=== PATIENT | female | born 1975 | race American Indian/Alaskan Native ===

== ENCOUNTER 2017-05-05 14:05 | Emergency (ER) | payer SELFPAY ==
[2017-05-05 14:54] LABS: Basophils % (Auto) 0.7 % (0.0-1.8); Eosinophils % (Auto) 2.9 % (0.0-4.3); Mean Corpuscular HGB Conc 29 % (30-34); Platelet Count 383 K/mm3 (140-440); Red Blood Count 4.88 M/mm3 (3.65-5.03); Red Cell Distribution Width 19.7 % (13.2-15.2); White Blood Count 8.6 K/mm3 (4.5-11.0)
[2017-05-05 14:58] LABS: Hematocrit 27.7 % (30.3-42.9); Mean Corpuscular Hemoglobin 16 pg (28-32); Mean Corpuscular Volume 57 fl (79-97)
[2017-05-05 15:05] LABS: Alanine Aminotransferase 12 units/L (7-56); Albumin 3.8 g/dL (3.9-5); Albumin/Globulin Ratio 1.1 %; Blood Urea Nitrogen 8 mg/dL (7-17); Calcium 8.7 mg/dL (8.4-10.2); Carbon Dioxide 23 mmol/L (22-30); Glucose 87 mg/dL (65-100); Total Protein 7.3 g/dL (6.3-8.2)
[2017-05-05 15:06] LABS: Alkaline Phosphatase 89 units/L (35-129); Anion Gap 18 mmol/L; Chloride 104.1 mmol/L (98-107); Lipase 31 units/L (13-60); Potassium 4.6 mmol/L (3.6-5.0); Sodium 140 mmol/L (137-145)
[2017-05-05 15:58] LABS: Bilirubin,Urine NEG (Negative); Blood,Urine NEG (Negative); Ketones,Urine NEG (Negative); Leukocyte Esterase,Urine MOD (Negative); Mucus,Urine FEW /HPF; Nitrite,Urine NEG (Negative); Urobilinogen,Urine < 2.0 mg/dL (<2.0)
--- NOTE | 2017-05-05 21:26 | Emergency Department Report ---
HPI - General Chief Complaint: Abdominal Pain Time Seen by Provider: 05/05/17 21:15 - HPI HPI: Room 8 The patient is a 41-year-old female presenting with a chief complaint of abdominal pain. The patient states that yesterday she has had intermittent "gnawing" pain in her right lower quadrant. Patient denies nausea vomiting or diarrhea. Patient denies dysuria hematuria or vaginal discharge. Patient denies fever or anorexia. The patient states her last Rm cycle came approximately 2 weeks late. The patient currently gives her pain a score of 8/ 10 Location: Lower quadrant Duration: Intermittent Since yesterday Quality: "Gnawing" Severity: 8/10 Modifying factors: [see above] Context: [see above] Mode of transportation: The patient drove herself to the emergency department and there are no other drivers present ED Past Medical Hx - Past Medical History Previous Medical History?: No - Surgical History Past Surgical History?: No Additional Surgical History: IUD - Family History Family history: no significant - Social History Smoking Status: Former Smoker (none 2 years) Substance Use Type: Alcohol (occasional) - Medications Home Medications: Home Medications Medication Instructions Recorded Confirmed Last Taken Type HYDROcodone/APAP 5-325 [[place] 1 - 2 each PO Q6HR PRN #14 tablet 05/05/17 Unknown Rx 5/325] Sulfamethoxazole/Trimethoprim 1 each PO BID #20 tablet 05/05/17 Unknown Rx [Bactrim DS TAB] ED Review of Systems ROS: Stated complaint: RT LOWER SIDE PAIN Other details as noted in HPI Comment: All other systems reviewed and negative Constitutional: denies: chills, fever Eyes: denies: eye pain, eye discharge, vision change ENT: denies: ear pain, throat pain Respiratory: denies: cough, shortness of breath, wheezing Cardiovascular: denies: chest pain, palpitations Endocrine: no symptoms reported Gastrointestinal: abdominal pain. denies: nausea, vomiting, diarrhea Genitourinary: abnormal menses. denies: dysuria, hematuria, discharge Musculoskeletal: denies: back pain, joint swelling, arthralgia Skin: denies: rash, lesions Neurological: denies: headache, weakness, paresthesias Psychiatric: denies: anxiety, depression Hematological/Lymphatic: denies: easy bleeding, easy bruising Physical Exam - Physical Exam Vital Signs: Vital Signs 05/05/17 14:10 Temperature 98.3 F Pulse Rate 80 Respiratory 18 Rate Blood Pressure 152/106 O2 Sat by Pulse 100 Oximetry Physical Exam: GENERAL: The patient is well-developed well-nourished female lying on stretcher not appear to be in acute distress. [] HEENT: Normocephalic. Atraumatic. Extraocular motions are intact. Patient has moist mucous membranes. NECK: Supple. Trachea midline CHEST/LUNGS: Clear to auscultation. There is no respiratory distress noted. HEART/CARDIOVASCULAR: Regular. There is no tachycardia. There is no gallop rub or murmur. ABDOMEN: Abdomen is soft, with trace discomfort to palpation in the right lower quadrant. Absent [place] sign. There is no rebound or guarding. Patient has normal bowel sounds. There is no abdominal distention. SKIN: There is no rash. There is no edema. There is no diaphoresis. NEURO: The patient is awake, alert, and oriented. The patient is cooperative. The patient has normal speech MUSCULOSKELETAL: There is no CVA tenderness. There is no evidence of acute injury. ED Course Vital Signs 05/05/17 14:10 Temperature 98.3 F Pulse Rate 80 Respiratory 18 Rate Blood Pressure 152/106 O2 Sat by Pulse 100 Oximetry ED Medical Decision Making - Lab Data Result diagrams: 05/05/17 14:26 05/05/17 14:26 Laboratory Tests 05/05/17 05/05/17 05/05/17 14:26 14:26 14:40 WBC 8.6 RBC 4.88 Hgb 8.0 L Hct 27.7 L MCV 57 L MCH 16 L MCHC 29 L RDW 19.7 H Plt Count 383 Lymph % (Auto) 32.9 [place] % (Auto) 7.4 H Eos % (Auto) 2.9 Baso % (Auto) 0.7 Lymph # 2.8 [place] # 0.6 Eos # 0.3 Baso # 0.1 Seg Neutrophils % 56.1 Seg Neutrophils # 4.8 Sodium 140 Potassium 4.6 Chloride 104.1 Carbon Dioxide 23 Anion Gap 18 BUN 8 Creatinine 0.8 Estimated GFR > 60 BUN/Creatinine Ratio 10.00 Glucose 87 Calcium 8.7 Total Bilirubin 0.20 AST 17 ALT 12 Alkaline Phosphatase 89 Total Protein 7.3 Albumin 3.8 L Albumin/Globulin Ratio 1.1 Lipase 31 HCG, Qual Urine Color Yellow Urine Turbidity Clear Urine pH 6.0 Ur Specific [place] 1.021 Urine Protein 30 mg/dl Urine Glucose (UA) Neg Urine Ketones Neg Urine Blood Neg Urine Nitrite Neg Urine Bilirubin Neg Urine Urobilinogen < 2.0 Ur Leukocyte Esterase Mod Urine WBC (Auto) 26.0 H Urine RBC (Auto) 10.0 U Epithel Cells (Auto) 7.0 Urine Mucus Few 05/05/17 17:36 WBC RBC Hgb Hct MCV MCH MCHC RDW Plt Count Lymph % (Auto) [place] % (Auto) Eos % (Auto) Baso % (Auto) Lymph # [place] # Eos # Baso # Seg Neutrophils % Seg Neutrophils # Sodium Potassium Chloride Carbon Dioxide Anion Gap BUN Creatinine Estimated GFR BUN/Creatinine Ratio Glucose Calcium Total Bilirubin AST ALT Alkaline Phosphatase Total Protein Albumin Albumin/Globulin Ratio Lipase HCG, Qual Negative Urine Color Urine Turbidity Urine pH Ur Specific [place] Urine Protein Urine Glucose (UA) Urine Ketones Urine Blood Urine Nitrite Urine Bilirubin Urine Urobilinogen Ur Leukocyte Esterase Urine WBC (Auto) Urine RBC (Auto) U Epithel Cells (Auto) Urine Mucus - Radiology Data Radiology results: report reviewed (CT abdomen and pelvis), image reviewed (CT abdomen and pelvis) CT abdomen and pelvis (read by radiologist)- probable CHF is seen. Bilateral ovarian cysts are seen. There is a 3 mm stone in the left kidney. Normal appendix. - Differential Diagnosis TIA, appendicitis, ovarian, renal colic Critical care attestation.: If time is entered above; I have spent that time in minutes in the direct care of this critically ill patient, excluding procedure time. ED Disposition Clinical Impression: Right lower quadrant abdominal pain, UTI (urinary tract infection), Ovarian cyst Disposition: TO HOME OR SELFCARE Is pt being admited?: No Does the pt Need Aspirin: No Condition: Stable Instructions: Abdominal Pain (ED) Additional Instructions: Return to the emergency department immediately should you develop worsening symptoms, fever, inability to tolerate food or liquid or any other concerns. Prescriptions: HYDROcodone/APAP 5-325 [[place] 5/325] 1 - 2 each PO Q6HR PRN #14 tablet PRN Reason: Pain Sulfamethoxazole/Trimethoprim [Bactrim DS TAB] 1 each PO BID #20 tablet Referrals: PRIMARY CARE, [Primary Care Provider] - 3-5 Days BRYAN GUILLORY MD [Staff Physician] - 3-5 Days (Dr. Guillory is an [employer]. Please follow up with her for further evaluation of your ovarian cyst) SANDRO PEARCE MD [Staff Physician] - 3-5 Days (Dr. Pearce is a primary physician. Please follow up with him for further evaluation) ANDREZ CHEN MD [Staff Physician] - 3-5 Days (Dr. Chen is a career resource specialist. Please follow up with him for further evaluation) Time of Disposition: 23:02
[2017-05-05] MEDS ORDERED: NACL ONE (21:27)
--- NOTE | 2017-05-05 22:49 | Cat Scan Report ---
FINAL REPORT PROCEDURE: CT ABDOMEN PELVIS W CON TECHNIQUE: Computerized axial tomography of the abdomen and pelvis was performed after the IV injection of iodinated nonionic contrast. HISTORY: right lower quadrant abdominal pain COMPARISON: No prior studies are available for comparison. FINDINGS: Probable CHF is seen. There is mild hepatomegaly. The spleen is normal in size. Gallbladder and pancreas display no abnormalities. [place] retroperitoneal lymph nodes are seen. The adrenal glands and abdominal aorta are normal in size. 1.8 cm cyst is seen in the mid right kidney. 3 millimeter stone is seen in the lower pole of the left kidney. No ureteral stones or hydronephrosis are seen. Bladder appears normal. Phleboliths are seen in the pelvis. IUD is seen in the uterus. 2.3 cm cyst is seen in the right ovary with a 1.6 cm cyst in the left ovary. Trace free fluid in the pelvis is likely physiologic. Normal appendix is seen. Likely benign hemangioma is seen within L1 vertebral body. IMPRESSION: Probable CHF is seen. Bilateral ovarian cysts are seen. There is a 3 millimeter stone in the left kidney.
[2017-05-06 00:27] VITALS: BP 164/94
== END 2017-05-05 23:30 | disposition home or self-care (01) ==
LOC: ED 14:05
DX: N39.0 Urinary tract infection, site not specified (principal); N83.202 Unspecified ovarian cyst, left side; N83.201 Unspecified ovarian cyst, right side; Z87.891 Personal history of nicotine dependence
CPT/HCPCS: 36415; 74177; 80053; 81001; 83690; 84703; 85025; 99284; Q9967